=== PATIENT | female | born 2005 | race Caucasian/White ===

== ENCOUNTER → 2024-06-27 10:18 | Outpatient (REF) | payer BC, SELFPAY | LOC: RAD 10:18 | PROVIDERS: ATTENDING PHYSICIAN Family Medicine | DX: Z87.19 Personal history of other diseases of the digestive system (principal); R10.9 Unspecified abdominal pain; R19.8 Other specified symptoms and signs involving the digestive system and abdomen | CPT/HCPCS: 76700 ==

== ENCOUNTER 2025-06-18 13:12 | Emergency (ER) | payer BC, SELFPAY ==
[2025-06-18 13:18] VITALS: BP 136/90
[2025-06-18 13:38] LABS: Hematocrit 38.2 % (37.0-47.0); Hemoglobin 12.8 g/dL (12.0-16.0); Mean Corp Hgb Conc. 33.5 g/dL (33.0-37.0); Mean Corpuscular Volume 82.0 fL (81.0-99.0); Nucleated Red Blood Cells % 0 %; Platelet Count 294 10^3/uL (130-400); Red Cell Dist. Width 13.0 % (11.5-14.5)
[2025-06-18 13:55] LABS: ALT (SGPT) 22 U/L (0-35); AST (SGOT) 26 U/L (14-36); Albumin 4.5 g/dl (3.5-5.0); Alkaline Phosphatase 35 U/L (38-126); Blood Urea Nitrogen 9 mg/dl (7-17); Calcium 9.2 mg/dl (8.4-10.2); Carbon Dioxide 21 mmol/L (22-30); Chloride 110 mmol/L (98-107); Glucose 81 mg/dl (70-99); Potassium 4.3 mmol/L (3.5-5.1); Sodium 141 mmol/L (135-145); Total Protein 7.6 g/dl (6.3-8.2); eGFR > 60.00
[2025-06-18 14:11] LABS: HCG, Serum Qualitative Screen Negative
--- NOTE | 2025-06-18 16:20 | ED.GENMED ---
History of Present Illness
General
Chief Complaint: Throat Problem
Source: patient and family (Mother)
Exam Limitations: none
Time Seen by Provider: 06/18/25 15:07
History of Present Illness
History of Present Illness:
19-year-old female complaining of ongoing submandibular adenopathy. Ongoing cough. Patient is going on vacation tomorrow and concerned that they are in an isolated area and there may be issues. Had a CT scan done in [place] weeks ago that showed
adenopathy nonspecific along with a thyroid nodule. No trouble swallowing. No fever. No weight changes.
Past History
Social History
Tobacco: Non-smoker
Review of Systems
Review of Systems
All Other Systems: Not applicable
Constitutional: Denies fever, weight loss or night sweats
Respiratory: Denies hemoptysis
Cardiac: Denies chest pain
Phy Exam
Physical Exam
Physical Exam:
GENERAL: Alert and oriented in no apparent distress
EYE: Orbits normal.
NECK: Supple, mild bilateral submandibular adenopathy. No other adenopathy
ENT: Pharynx without erythema. No uvula swelling. No abscess. No drooling no stridor
CARDIAC: Regular rate and rhythm without any obvious murmurs.
LUNGS: Clear breath sounds,normal
ABDOMEN: Soft, without focal tenderness or distention
NEUROLOGICAL: Alert and oriented , grossly non-focal
SKIN: Warm and dry, no rash or lesion, no discoloration, skin intact.
MUSCULOSKELETAL: No edema,no deformity.Good color
PSYCH: Normal and appropriate interaction.
Course
Orders/Labs/Results
Orders:
Orders
06/18/25 13:25
Test Result ONCE
06/18/25 13:31
CMP [Comprehensive Metabolic Panel] Urgent
Complete Blood Count/With Diff Urgent
HCG, Serum Qualitative Screen Urgent
Monotest Urgent
Comment: ADD ON
TSH Reflex To Free T4 Urgent
Comment: ADD ON
06/18/25 15:47
Add On- LAB Urgent
Tests Added?: tsh reflex t4.monospot
CXR2 [CR Chest - 2 Views ] Urgent
Comment:
Reason For Exam: cough
Abnormal Lab Results
06/18/25
13:31
WBC 4.6 L 10^3/uL
(4.8-10.8)
Monocytes % 11.5 H %
(1.7-9.3)
Chloride 110 H mmol/L
(98-107)
Carbon Dioxide 21 L mmol/L
(22-30)
Alkaline Phosphatase 35 L U/L
(38-126)
Monoscreen Positive A
(Negative)
06/18/25 13:31
06/18/25 13:31
Vital Signs
Initial and Last Documented VS:
Initial Vital Signs
Temp Pulse Resp BP Pulse Ox
98.5 F 87 18 136/90 98
06/18/25 13:18 06/18/25 13:18 06/18/25 13:18 06/18/25 13:18 06/18/25 13:18
Last Documented Vital Signs
Temp Pulse Resp BP Pulse Ox
98.5 F 87 18 136/90 98
06/18/25 13:18 06/18/25 13:18 06/18/25 13:18 06/18/25 13:18 06/18/25 16:21
MDM/Problems Addressed
Differential Diagnosis Includes:
Likely all viral syndrome. Do not feel the thyroid nodule would explain any of her symptoms. Cannot justify emergent ultrasound for this incidental nodule. This can be done as an outpatient. Will get chest x-ray with ongoing cough.. Also check
thyroid labs and Monospot.
*Radiology
Radiology exam reviewed: preliminary read by ED provider (neg)
*Pulse Oximetry
SaO2: 98
Oxygen Mode of Delivery: Room air
Patient hypoxic: no
*Critical Care Note
Total Time (30-74mins, 75-104mins- exclusive of procedures): Not Applicable
Update Note
Update Note:
Patient is remained medically stable and nontoxic. [place] is positive. Will do short course of steroids. Follow-up with ENT. Also to consider follow-up with hematology for ongoing adenopathy
ED Attending Note
-
Portions of this chart may have been created with voice recognition software.� Occasional wrong word or��sound alike� substitutions may have occurred due to the inherent limitations of voice recognition software.
Discharge Plan
Departure
Patient Disposition: Home (Routine Discharge)
Date of Disposition: 06/18/25
Time of Disposition: 16:45
Patient with high blood pressure during this ER visit?: Yes
Discharge Problem:
Ongoing adenopathy, Mononucleosis, Incidental thyroid nodule
Instructions: Cough, Adult (DC), Mononucleosis (DC), BLOOD PRESSURE
Prescriptions:
New
methylprednisolone [Medrol (Iain)] 4 mg tablets,dose pack
See Rx Instructions .ROUTE .COMPLEX Qty: 21 0RF
Rx Instructions:
orally per package directions
Referrals:
Heydi Mccauley MD [Active, Oncology] - Next open appointment
Landry Aguilar MD [Active, Otology] - Follow up in 2-3 days
Roni Weaver DO [Family Provider, Internal Medicine]
Activity Restrictions/Additional Instructions:
I gave you the name of an ENT doc and a at home independent call center agent oncologist that she could follow-up with
Make sure she gets a follow-up ultrasound of the thyroid nodule
The prescription was sent to her pharmacy
Interventions
Interventions:
*ED COVID-19 Vaccine History Last Done: 06/18/25 13:18
ED-EENT Assessment Last Done: 06/18/25 16:35
ED- Pulmonary Assessment Last Done: 07/27/25 16:35
Discharge Date and Time
Print Language: TAJIK
[2025-06-18 16:54] VITALS: BP 129/83
[2025-06-18] MEDS: DELTASONE 40 MG PO (16:54)
== END 2025-06-18 17:01 | disposition home or self-care (01) ==
LOC: EMR 13:12
PROVIDERS: EMERGENCY PHYSICIAN Emergency Medicine; FAMILY PHYSICIAN Internal Medicine
DX: R05.9 Cough, unspecified (principal); B27.90 Infectious mononucleosis, unspecified without complication; E04.1 Nontoxic single thyroid nodule; R03.0 Elevated blood-pressure reading, without diagnosis of hypertension; Z91.018 Allergy to other foods
CPT/HCPCS: 99283; 71046; 80053; 84443; 84703; 85025; 86308